=== PATIENT | female | born 1945 | race Asian ===

== ENCOUNTER 2023-01-11 13:20 | Emergency (ER) | payer MEDICARE, OTHER ==
[~2023-01-11] VITALS: Ht 152.4 cm; Wt 68.0 kg
[~2023-01-11 13:20] MED LIST: BISA-79 PO; POLY17PO4 PO
[2023-01-11 13:42] VITALS: TEMP 100.2
[2023-01-11] MEDS ORDERED: ACETAMINOPHEN 325 MG TABLET PO ONE (16:00)
[2023-01-11] MEDS ORDERED: IV NS 0.9% 1,000 ML BAG IV ONE (16:00)
[2023-01-11] MEDS ORDERED: ACETAMINOPHEN 325 MG TABLET ONE (16:37)
[2023-01-11 18:09] VITALS: BP 125/71; O2SAT 94
[2023-01-11] MEDS ORDERED: MAGN400O6 PO (18:37)
[2023-01-11] MEDS ORDERED: CALC1TAB30 PO (18:37)
[2023-01-11] MEDS ORDERED: BISA5TAB10 PO (18:37)
[2023-01-11] MEDS ORDERED: POLY17PO4 PO (18:37)
[2023-01-11] MEDS ORDERED: ACET-868 PO (18:37)
[2023-01-11] MEDS ORDERED: FOLI0.4T6 PO (18:37)
[2023-01-11] MEDS ORDERED: NALO4SPR NS (18:37)
[2023-01-11] MEDS ORDERED: LEVO50TA8 PO (18:37)
[2023-01-11] MEDS ORDERED: OLAN5TAB3 PO (18:37)
[2023-01-11] MEDS ORDERED: MULT-24 PO (18:37)
[2023-01-11] MEDS ORDERED: METF-440 PO (18:37)
[2023-01-11] MEDS ORDERED: OLAN2.5T3 PO (18:37)
[2023-01-11] MEDS ORDERED: DOCU250C14 PO (18:37)
[2023-01-11] MEDS ORDERED: TRAM50TA2 PO (18:37)
[2023-01-11] MEDS ORDERED: TEMA7.5C12 PO (18:37)
[2023-01-11] MEDS ORDERED: MAG30ORA PO (18:37)
[2023-01-11] MEDS ORDERED: NA P133E RC (18:37)
== END 2023-01-11 20:04 ==
LOC: ER 14:00
DX: U07.1 COVID-19 (principal); R50.9 Fever, unspecified; R51.9 Headache, unspecified; I11.9 Hypertensive heart disease without heart failure; F31.9 Bipolar disorder, unspecified; F41.9 Anxiety disorder, unspecified; E03.9 Hypothyroidism, unspecified; Z79.899 Other long term (current) drug therapy; W18.39XA Other fall on same level, initial encounter; Y93.89 Activity, other specified; Y92.89 Other specified places as the place of occurrence of the external cause; Y99.8 Other external cause status
CPT/HCPCS: 70450-TC; 72125-TC; 73110; 73521; 73610-TC; 82962-TC